=== PATIENT | female | born 1995 | race Caucasian/White ===

== ENCOUNTER 2017-06-24 11:53 | Emergency (ER) | payer SELFPAY ==
[~2017-06-24] VITALS: Ht 157.5 cm; Wt 78.9 kg
[2017-06-24 11:57] VITALS: Ht 157.5 cm; Wt 78.9 kg
--- NOTE | 2017-06-24 12:28 | ERA ---
ER Documentation Chief Complaint Date/Time DATE: 06/24/17 TIME: 12:23 Chief Complaint FELL, HIT HEAD, NO KO HPI 22-year-old female presenting one hour status post laceration to forehead. Patient was walking up the hill when she fell and hit her head against the edge of a metal box and sustained a laceration. Denies pain, altered mental status, change in behavior per boyfriend, loss of consciousness, vomiting, or severe headache. Patient has no other complaints and describes no other associated manifestations. Tetanus status unknown. Nursing notes have been reviewed and are consistent with history given. ROS All systems reviewed and are negative except as per history of present illness. Allergies Allergies: Coded Allergies: No Known Allergy (Unverified , 10/02/11) PMhx/Soc History of Surgery: No Anesthesia Reaction: No Hx Neurological Disorder: No Hx Respiratory Disorders: No Hx Cardiac Disorders: No Hx Psychiatric Problems: No Hx Miscellaneous Medical Probl: No Hx Alcohol Use: No Hx Substance Use: No Hx Tobacco Use: No Smoking Status: Never smoker Physical Exam Vitals Vital Signs Date Time Temp Pulse Resp B/P Pulse Ox O2 Delivery O2 Flow Rate FiO2 06/24/17 11:57 98.2 70 18 139/79 99 Physical Exam Const: Healthy-appearing. No acute distress. Head: 3 cm laceration approximately 1-2 cm right of midline on the forehead just below the hairline. Neur: Awake, alert and oriented x3. Neurovascularly intact bilaterally. Psych: Normal Mood and Affect. Eyes: No nystagmus noted. Otoscope exam unremarkable. EOMI and JENNIFER bilaterally. Ears: bilaterally without erythema or hemotympanum. Normal External Ears, EACs clear, TM normal Nose: Normal external nose; no discharge, septal deviation, or sinus tenderness. Oral: No oral edema visualized. Mucous membranes moist and pink. Neck: No cervical lymphadenopathy or . Trachea midline. Supple ~ No meningismus. Pulm: Good air movement in upper and lower respiratory tracts. No dyspnea, stridor, tripoding or drooling. Clear to auscultation bilaterally. Cardio: Regular rate and rhythm; No murmurs, gallops or rubs auscultated. No JVD grossly observed. Radial and posterior tibial pulses 2+ bilaterally. No cyanosis. Capillary refill less than 2 seconds. Abd: Soft, non tender, non distended. No guarding, masses. Normal bowel sounds. No McBurney's point tenderness. MS: Normal motor strength, normal tone with gross examination. Skin: As noted in head exam Back: No midline, flank or CVA tenderness. Ext: No edema. Normal movement of all extremities grossly observed. : (Deferred) Results 24 hrs Current Medications Medications (Trade) Dose Ordered Sig/Brayan Route PRN Reason Start Time Stop Time Status Last Admin Dose Admin Diphtheria/ Tetanus/Acell Pertussis (Adacel) 0.5 ml ONCE ONCE IM* 06/24/17 12:30 06/24/17 12:31 DC 06/24/17 12:37 Lidocaine (Xylocaine 1% (Mdv) 20 ml) 20 ml ONCE ONCE SC 06/24/17 13:00 06/24/17 13:01 DC Procedures/MDM Patient presents one hour status post injury to the forehead. Patient sustained a laceration as described in the as described in history and physical. Tylenol was given in the ED for discomfort.Laceration was repaired with 5 Steri-Strips. Dermabond was applied after Steri-Strips. Patient was neurovascularly intact after procedure.I have no suspicion at this time for intracranial pathology including traumatic brain injury, infection, or other acute pathology. Most likely diagnosis is simple clean laceration to the forehead. X-ray for foreign body evaluation is not needed at this time. Tetanus status is unknown. Tetanus was given. I have spoke with the patient regarding their condition and future management. They have verbally responded that they understand their status and treatment plan. The patients vitals are stable, and their current condition is appropriate for discharge. The patient will be given discharge instructions with return precautions. Departure Diagnosis: Primary Impression: Laceration Condition: Stable Additional Instructions: Follow up with your PCP within the next 1-3 days for a more thorough evaluation and a possible referral to a specialist. Return the the emergency department immediately if symptoms worsen or change. If you have any questions regarding medications, ask your pharmacist or us before you leave. If any adverse reactions occur while taking your medications, discontinue the treatment and return to the emergency department immediately. Take your medications as directed, and complete the entire course of treatment. ARAM RYAN PA-C Jun 24, 2017 12:28
[2017-06-24] MEDS ORDERED: DIPHTH/TET/ACEL PERTUSS (ADULT) 0.5 ML VIAL IM* ONE (12:30)
[2017-06-24] MEDS ORDERED: LIDOCAINE 1% (MDV) 20 ML INJ SC ONE (13:00)
== END 2017-06-24 15:02 | disposition home or self-care (01) ==
LOC: FTE 11:53
DX: S01.81XA Laceration without foreign body of other part of head, initial encounter (principal); W26.8XXA Contact with other sharp object(s), not elsewhere classified, initial encounter; Y92.9 Unspecified place or not applicable; Z23 Encounter for immunization
CPT/HCPCS: 90471; 90715

== ENCOUNTER 2017-08-27 21:47 | Emergency (ER) | payer BC ==
[~2017-08-27] VITALS: Ht 162.6 cm; Wt 59.9 kg
[2017-08-27 22:27] VITALS: Ht 162.6 cm; Wt 59.9 kg
[2017-08-28] MEDS ORDERED: SULF1TAB31 PO (02:05)
[2017-08-28] MEDS ORDERED: CEPH-443 PO (02:05)
[2017-08-28] MEDS ORDERED: IBUP-1542 PO (02:05)
--- NOTE | 2017-08-28 02:42 | ERD ---
ER Documentation Chief Complaint Chief Complaint Lt breast bump, red and painful x4days HPI 22-year-old female presents here to emergency department for complaints of left breast redness and swelling that started 4 days ago. Patient is complaining of pain sharp pain, 4/10 scale, as was upon touching the area. Patient did not take any medications to help with symptoms. Patient denies any fever or chills. ROS All systems reviewed and are negative except as per history of present illness. Medications Home Meds Active Scripts Ibuprofen* (Motrin*) 600 Mg Tab, 600 MG PO Q6H Y for PAIN AND OR ELEVATED TEMP, #30 TAB Prov:JEANNIE PATEL NP 08/28/17 Cephalexin* (Keflex*) 500 Mg Capsule, 500 MG PO QID for 10 Days, CAP Prov:JEANNIE PATEL NP 08/28/17 Sulfamethoxazole/Trimethoprim* (Bactrim Ds* Tablet) 1 Each Tablet, 1 TAB PO BID , #20 TAB Prov:JEANNIE PATEL NP 08/28/17 Allergies Allergies: Coded Allergies: No Known Allergy (Unverified , 08/27/17) PMhx/Soc History of Surgery: No Anesthesia Reaction: No Hx Neurological Disorder: No Hx Respiratory Disorders: No Hx Cardiac Disorders: No Hx Psychiatric Problems: No Hx Miscellaneous Medical Probl: Yes (Anemia) Hx Alcohol Use: No Hx Substance Use: Yes (methamphetamine use) Hx Tobacco Use: No Smoking Status: Never smoker FmHx Family History: No coronary disease, No diabetes, No other Physical Exam Vitals Vital Signs Date Time Temp Pulse Resp B/P Pulse Ox O2 Delivery O2 Flow Rate FiO2 08/27/17 22:27 98.1 83 18 114/73 100 Physical Exam GENERAL: The patient is well developed and appropriate for usual state of health, in no apparent distress. CHEST: Clear to auscultation bilaterally. There are no rales, wheezes or rhonchi. HEART: Regular rate and rhythm. No murmurs, clicks, rubs or gallops. No S3 or S4. ABDOMEN: Soft, nontender and nondistended. Good bowel sounds. No rebound or guarding. No gross peritonitis. No gross organomegaly or masses. No Diaz sign or McBurney point tenderness. BACK: No midline or flank tenderness. EXTREMITIES: Equal pulses bilaterally. There is no peripheral clubbing, cyanosis or edema. No focal swelling or erythema. Full range of motion. Grossly neurovascularly intact. NEURO: Alert and oriented. Cranial nerves 2-12 intact. Motor strength in all 4 extremities with 5/5 strength. Sensation grossly intact. Normal speech and gait. SKIN: 2 centimeter diameter erythematous indurated area on the left breast adjacent to 3:00 of the nipple, no fluctuance noted. Mild tenderness on palpation. There is no apparent rash or petechia. The skin is warm and dry. HEMATOLOGIC AND LYMPHATIC: There is no evidence of excessive bruising or lymphedema. No gross cervical, axillary, or inguinal lymphadenopathy. Procedures/MDM Medical decision making: Patient symptoms most likely is consistent with mastitis. No symptoms of any abscess at this time. Incision and drainage not indicated at this time. No symptoms of any nipple discharge. No symptoms of sepsis at this time, patient appears once with dynamic stable. Prescription was given for Keflex, Bactrim, ibuprofen, is advised to follow-up with primary doctor in 2-3 days for reevaluation of symptoms. Patient was advised to return to emergency department for any worsening symptoms. Disposition: Home. Stable. Departure Diagnosis: Primary Impression: Mastitis Condition: Stable Patient Instructions: JEANNIE Leal NP Aug 28, 2017 02:42
== END 2017-08-28 02:25 | disposition home or self-care (01) ==
LOC: FTE 21:47
DX: N61.0 Mastitis without abscess (principal)
CPT/HCPCS: 99284

== ENCOUNTER 2019-05-21 10:12 | Emergency (ER) | payer BC, OTHER ==
[~2019-05-21] VITALS: Ht 152.4 cm; Wt 66.4 kg
[~2019-05-21 10:12] MED LIST: CEPH-443 PO; IBUP-1542 PO; SULF1TAB31 PO
[2019-05-21 10:14] VITALS: BP 120/71; PULSE 87; RESP 22; Ht 152.4 cm; Wt 66.4 kg
--- NOTE | 2019-05-21 12:34 | ERD ---
ER Documentation Chief Complaint Chief Complaint LOWER ABDOMINAL PAIN TODAY LMP 02/22/19 HPI 24-year-old female presents with lower abdominal began today. It is mild. She has increased urinary frequency but no urgency dysuria or hematuria. Her last menstrual period was February 22 but she states her periods are irregular so this is normal for her. She has had no nausea vomiting or diarrhea. No fever. No alleviating or exacerbating factors. ROS All systems reviewed and are negative except as per history of present illness. Medications Home Meds Active Scripts Ibuprofen* (Motrin*) 600 Mg Tab, 600 MG PO Q6H PRN for PAIN AND OR ELEVATED TEMP, #30 TAB Prov:JEANNIE PATEL NP 08/28/17 Cephalexin* (Keflex*) 500 Mg Capsule, 500 MG PO QID for 10 Days, CAP Prov:JEANNIE PATEL NP 08/28/17 Sulfamethoxazole/Trimethoprim* (Bactrim Ds* Tablet) 1 Each Tablet, 1 TAB PO BID, #20 TAB Prov:JEANNIE PATEL NP 08/28/17 Allergies Allergies: Coded Allergies: No Known Allergy (Unverified , 08/27/17) PMhx/Soc History of Surgery: No Anesthesia Reaction: No Hx Neurological Disorder: No Hx Respiratory Disorders: No Hx Cardiac Disorders: No Hx Psychiatric Problems: No Hx Miscellaneous Medical Probl: Yes (Anemia) Hx Alcohol Use: No Hx Substance Use: No (HX methamphetamine use) Hx Tobacco Use: No FmHx Family History: No diabetes Physical Exam Vitals Vital Signs Date Temp Pulse Resp B/P (MAP) Pulse Ox O2 O2 Flow FiO2 Time Delivery Rate 05/21/19 98.3 87 22 120/71 98 10:14 (87) Physical Exam Const: No acute distress Head: Atraumatic Eyes: Normal Conjunctiva ENT: Normal External Ears, Nose and Mouth. Neck: Full range of motion. No meningismus. Resp: Clear to auscultation bilaterally Cardio: Regular rate and rhythm, no murmurs Abd: Soft, non tender, non distended. Negative Diaz sign, negative McBurney's point tenderness, no CVA tenderness bilaterally Result Diagram: 05/21/19 1053 05/21/19 1053 Results 24 hrs Laboratory Tests Test 05/21/19 10:53 05/21/19 10:54 05/21/19 10:56 White Blood Count 8.3 10^3/ul Red Blood Count 4.16 10^6/ul Hemoglobin 12.6 g/dl Hematocrit 36.3 % Mean Corpuscular Volume 87.3 fl Mean Corpuscular Hemoglobin 30.3 pg Mean Corpuscular 34.7 g/dl Hemoglobin Concent Red Cell Distribution Width 12.0 % Platelet Count 297 10^3/UL Mean Platelet Volume 9.0 fl Immature Granulocytes % 1.000 % Neutrophils % 57.3 % Lymphocytes % 32.4 % Monocytes % 7.6 % Eosinophils % 1.1 % Basophils % 0.6 % Nucleated Red Blood Cells % 0.0 /100WBC Immature Granulocytes # 0.080 10^3/ul Neutrophils # 4.8 10^3/ul Lymphocytes # 2.7 10^3/ul Monocytes # 0.6 10^3/ul Eosinophils # 0.1 10^3/ul Basophils # 0.1 10^3/ul Nucleated Red Blood Cells # 0.0 10^3/ul Sodium Level 139 mmol/L Potassium Level 3.8 mmol/L Chloride Level 107 mmol/L Carbon Dioxide Level 25 mmol/L Anion Gap 7 Blood Urea Nitrogen 15 mg/dl Creatinine 0.78 mg/dl Est Glomerular Filtrat > 60 mL/min Rate mL/min Glucose Level 86 mg/dl Calcium Level 8.8 mg/dl Total Bilirubin 0.6 mg/dl Direct Bilirubin 0.00 mg/dl Indirect Bilirubin 0.6 mg/dl Aspartate Amino 128 IU/L Transf (AST/SGOT) Alanine 349 IU/L Aminotransferase (ALT/SGPT) Alkaline Phosphatase 74 IU/L Total Protein 6.6 g/dl Albumin 3.8 g/dl Globulin 2.80 g/dl Albumin/Globulin Ratio 1.35 Lipase 108 U/L Urine Color YELLOW Urine Clarity SLIGHTLY CLOUDY Urine pH 5.0 Urine Specific [place] 1.026 Urine Ketones NEGATIVE mg/dL Urine Nitrite NEGATIVE mg/dL Urine Bilirubin NEGATIVE mg/dL Urine Urobilinogen NEGATIVE mg/dL Urine Leukocyte Esterase NEGATIVE [place]/ul Urine Microscopic RBC 4 /HPF Urine Microscopic WBC 1 /HPF Urine Squamous Epithelial Cells FEW /HPF Urine Mucus FEW /HPF Urine Hemoglobin NEGATIVE mg/dL Urine Glucose NEGATIVE mg/dL Urine Total Protein NEGATIVE mg/dl POC Beta HCG, Qualitative NEGATIVE Procedures/MDM The differential diagnosis includes but is not limited to appendicitis, cholelithiasis, cholecystitis, pancreatitis, hepatitis, gastritis, peptic ulcer disease, bowel obstruction, diverticulitis, renal disease including stones, torsion, AAA, pyelonephritis, and others. Labs show elevated LFTs. I did order a gallbladder ultrasound which was negative. Abdominal pain of unclear et iology. is negative. Patient counseled regarding my diagnostic impression and care plan. Prior to discharge all questions answered. Pt agrees with treatment plan and understands strict return precautions. Pt is instructed to follow up with primary care provider within 24-48 hours. Precautionary instructions provided including instructions to return to the ER if not improving or for any worsening or changing symptoms or concerns. Departure Diagnosis: Primary Impression: Abdominal pain Condition: Stable Patient Instructions: Abdominal Pain Additional Instructions: Call your primary care doctor TOMORROW for an appointment during the next 1-2 days.See the doctor sooner or return here if your condition worsens before your appointment time. GIANCARLO RUFF PA-C May 21, 2019 12:34
== END 2019-05-21 12:40 | disposition home or self-care (01) ==
LOC: FTE 10:12
DX: R10.30 Lower abdominal pain, unspecified (principal)
CPT/HCPCS: 36415; 76705; 80053; 81001; 81025; 83690; 85025; Z7502; 81003

== ENCOUNTER 2019-05-27 14:15 | Emergency (ER) | payer OTHER ==
[~2019-05-27] VITALS: Ht 157.5 cm; Wt 65.9 kg
[2019-05-27 14:27] VITALS: Ht 157.5 cm; Wt 65.9 kg
[2019-05-27 16:24] VITALS: BP 122/79; PULSE 81; RESP 16
--- NOTE | 2019-05-27 16:26 | ERD ---
ER Documentation Chief Complaint Chief Complaint 13 wks . VAG BLEEDING. HOMELESS, LIVING IN A TENT. HPI This is a 24-year-old homeless female possibly estimated at 13 weeks by EMS by last menstrual period presenting with vaginal bleeding that started today. She denies any significant abdominal pain, dizziness, fever, vomiting, chills. Her last menstrual period was about 2 months ago. She does have a history of irregular periods. She states that she thinks she is because she went to a clinic where her urine was negative but her blood test was reportedly positive for . However she has not had any further work-up ROS All systems reviewed and are negative except as per history of present illness. Medications Home Meds Discontinued Scripts Ibuprofen* (Motrin*) 600 Mg Tab, 600 MG PO Q6H PRN for PAIN AND OR ELEVATED TEMP, #30 TAB Prov:JEANNIE PATEL NP 08/28/17 Cephalexin* (Keflex*) 500 Mg Capsule, 500 MG PO QID for 10 Days, CAP Prov:JEANNIE PATEL NP 08/28/17 Sulfamethoxazole/Trimethoprim* (Bactrim Ds* Tablet) 1 Each Tablet, 1 TAB PO BID, #20 TAB Prov:JEANNIE PATEL NP 08/28/17 Allergies Allergies: Coded Allergies: No Known Allergy (Unverified , 05/27/19) PMhx/Soc Medical and Surgical Hx: pt denies Surgical Hx History of Surgery: No Anesthesia Reaction: No Hx Neurological Disorder: No Hx Respiratory Disorders: No Hx Cardiac Disorders: No Hx Psychiatric Problems: No Hx Miscellaneous Medical Probl: Yes (Anemia) Hx Alcohol Use: No Hx Substance Use: No (HX methamphetamine use) Hx Tobacco Use: No Smoking Status: Never smoker FmHx Family History: No diabetes Physical Exam Vitals Vital Signs Date Temp Pulse Resp B/P (MAP) Pulse Ox O2 O2 Flow FiO2 Time Delivery Rate 05/27/19 98.5 81 16 122/79 99 Room Air 16:24 (93) 05/27/19 98.8 77 16 118/71 98 Room Air 15:10 (87) 05/27/19 99.0 90 16 111/69 98 14:27 (83) Physical Exam Const: No acute distress Head: Atraumatic Eyes: Normal Conjunctiva ENT: Normal External Ears, Nose and Mouth. Neck: Full range of motion. No meningismus. Resp: Clear to auscultation bilaterally Cardio: Regular rate and rhythm, no murmurs Abd: Soft, non tender, non distended. Normal bowel sounds Skin: No petechiae or rashes Back: No midline or flank tenderness Ext: No cyanosis, or edema Neur: Awake and alert Psych: Normal Mood and Affect Result Diagram: 05/27/19 1434 Results 24 hrs Laboratory Tests Test 05/27/19 14:34 White Blood Count 9.6 10^3/ul Red Blood Count 4.05 10^6/ul Hemoglobin 12.2 g/dl Hematocrit 35.3 % Mean Corpuscular Volume 87.2 fl Mean Corpuscular Hemoglobin 30.1 pg Mean Corpuscular Hemoglobin Concent 34.6 g/dl Red Cell Distribution Width 11.9 % Platelet Count 308 10^3/UL Mean Platelet Volume 9.5 fl Immature Granulocytes % 0.200 % Neutrophils % 64.2 % Lymphocytes % 27.8 % Monocytes % 6.1 % Eosinophils % 1.1 % Basophils % 0.6 % Nucleated Red Blood Cells % 0.0 /100WBC Immature Granulocytes # 0.020 10^3/ul Neutrophils # 6.2 10^3/ul Lymphocytes # 2.7 10^3/ul Monocytes # 0.6 10^3/ul Eosinophils # 0.1 10^3/ul Basophils # 0.1 10^3/ul Nucleated Red Blood Cells # 0.0 10^3/ul Beta HCG, Quantitative < 2.4 mIU/ml Procedures/MDM EMERGENT LABS AND DIAGNOSTIC STUDIES: Lab Results above were reviewed and interpreted by me. CBC: no anemia or evidence of infection test negative Radiology Results as interpreted by Radiology below were reviewed by Forest Hamilton MD: Ultrasound pelvis shows no evidence of ectopic or any other significant abnormalities Initial Nursing notes reviewed. Previous Medical Records requested via the Electronic Health Record. EMERGENCY DEPARTMENT COURSE / MEDICAL DECISION MAKING: Patient is presenting with vaginal bleeding with no significant hemodynamic instability. I suspect that the patient was never . This might just be her normal period. Her serum hCG is essentially negative. I explained to the patient. She feels comfortable with discharge plan. I have provided a medical screening exam and evaluation. Referral to outpatient behavioral health for follow up is not indicated The patient is clinically stable for discharge. I have communicated after-visit instructions and plan to the patient. Because patient has been identified as without residence, the hospital policy and process for discharge requirements have been initiated by appropriate hospital staff. Patient states that she is already working with a social psychologist with regard to his situation. Departure Diagnosis: Primary Impression: Vaginal bleeding Condition: Stable Patient Instructions: Understanding Periods Referrals: ISMAEL DONOHUE MD (PCP) ELISE HAMILTON MD May 27, 2019 16:26
== END 2019-05-27 16:45 | disposition home or self-care (01) ==
LOC: E/R 14:15
DX: O20.9 Hemorrhage in early pregnancy, unspecified (principal); Z3A.13 13 weeks gestation of pregnancy
CPT/HCPCS: 76801; 76817; 84702; 85025; 86900; 86901